=== PATIENT | female | born 1980 | race African-American/Black ===

== ENCOUNTER 2016-03-03 12:33 | Emergency (ER) | payer OTHER ==
[~2016-03-03] VITALS: Ht 162.6 cm; Wt 53.1 kg
[2016-03-03 12:58] VITALS: BP 99/57
[2016-03-03 13:48] LABS: Urine RBC None Seen /hpf (0 - 4)
[2016-03-03 14:08] LABS: Urine Bilirubin Negative (Negative); Urine Blood Negative /uL (Negative); Urine Color Yellow (Yellow); Urine Glucose Normal (Normal); Urine Ketone Negative (Negative); Urine Nitrite Negative (Negative); Urine Squamous Epithelial Cell FEW /hpf (<5); Urine Urobilinogen Normal (Negative); Urine pH 5.5 (5.0-8.0)
== END 2016-03-03 17:29 | disposition left against medical advice (07) ==
LOC: ER 12:34
DX: R23.8 Other skin changes (principal); J02.9 Acute pharyngitis, unspecified; F41.9 Anxiety disorder, unspecified
CPT/HCPCS: 81001; 81025

== ENCOUNTER 2016-03-19 09:44 | Emergency (ER) | payer OTHER ==
[~2016-03-19] VITALS: Ht 162.6 cm; Wt 55.8 kg
[2016-03-19 10:07] VITALS: BP 117/70
== END 2016-03-19 13:00 | disposition home or self-care (01) ==
LOC: ER 09:44
DX: O26.891 Other specified pregnancy related conditions, first trimester (principal); Z32.01 Encounter for pregnancy test, result positive; Z90.49 Acquired absence of other specified parts of digestive tract
CPT/HCPCS: 36415; 84702

== ENCOUNTER 2016-03-27 10:36 | Emergency (ER) | payer OTHER ==
[~2016-03-27] VITALS: Ht 162.6 cm; Wt 54.4 kg
[2016-03-27 11:48] VITALS: BP 112/67
[2016-03-27] MEDS ORDERED: SODIUM CHLORIDE 0.9% 1,000 ML IVB ONE (11:58)
[2016-03-27 12:07] LABS: Albumin 3.9 g/dL (3.4-5.0); BUN/Creatinine Ratio 14.3; Bilirubin, Total 0.3 mg/dL (0.2-1.0); Potassium 3.7 mmol/L (3.5-5.1); Total Protein 8.4 g/dL (6.4-8.2)
[2016-03-27 12:18] LABS: Urine Bilirubin Negative (Negative); Urine Blood Negative /uL (Negative); Urine Color Yellow (Yellow); Urine Glucose Normal (Normal); Urine Ketone Negative (Negative); Urine Mucus FEW (None Seen); Urine Nitrite Negative (Negative); Urine RBC 1 /hpf (0 - 4); Urine Sperm PRESENT /hpf (None Seen); Urine Squamous Epithelial Cell FEW /hpf (<5); Urine Urobilinogen Normal (Negative); Urine pH 5.5 (5.0-8.0)
[2016-03-27 12:32] LABS: Basophils # (auto) 0 uL; Basophils % (auto) 0.4 % (0.0-2.0); DEFINITIVE VIEW TRANSMISSION; Eosinophils # (auto) 0 uL; Eosinophils % (auto) 0.7 % (0.0-7.0); Hematocrit 36.4 % (36.0-46.0); Hemoglobin 11.2 g/dL (12.2-16.2); Lymphocytes # (auto) 1.4 uL; Lymphocytes % (auto) 33.9 % (10.0-50.0); Mean Corpuscular Hemoglobin 23.8 pg (28.0-32.0); Mean Corpuscular Hgb Conc. 30.8 g/dL (32.0-36.0); Mean Corpuscular Volume 77.4 fL (80.0-100.0); Mean Platelet Volume 8.8 fL (7.4-10.4); Monocytes # (auto) 0.4 uL; Monocytes % (auto) 10.5 % (0.0-12.0); Neutrophils # (auto) 2.2 uL; Neutrophils % (auto) 54.5 % (37.0-80.0); Platelet Count (auto) 334 10^3/uL (140-450); White Blood Cell 4.1 10^3/uL (4.4-10.8)
[2016-03-27 12:51] LABS: Anisocytosis Slight; Hypochromia Moderate; Large Platelets FEW; Platelet Estimate Adequate
== END 2016-03-27 15:23 | disposition left against medical advice (07) ==
LOC: ER 10:36
DX: O20.8 Other hemorrhage in early pregnancy (principal); Z3A.01 Less than 8 weeks gestation of pregnancy; Z53.21 Procedure and treatment not carried out due to patient leaving prior to being seen by health care provider
CPT/HCPCS: 36415; 76801; 80053; 81001; 84702; 85025; J7030; 94761; 96360; 96361

== ENCOUNTER 2016-10-02 19:30 | Observation (INO) | payer MEDICAID | END 2016-10-02 21:55 | disposition home or self-care (01) | DRG 566 | LOC: LDRP 19:30 | PROVIDERS: ADMIT Obstetrics & Gynecology; ATTEND Obstetrics & Gynecology | DX: O99.513 Diseases of the respiratory system complicating pregnancy, third trimester (principal); Z3A.33 33 weeks gestation of pregnancy | CPT/HCPCS: 59025; 76818; 81002; G0378 ==

== ENCOUNTER 2016-10-02 22:02 | Emergency (ER) | payer MEDICAID ==
[~2016-10-02] VITALS: Ht 162.6 cm; Wt 72.6 kg
[2016-10-02 22:47] LABS: Basophils # (auto) 0.1 uL; Basophils % (auto) 0.8 % (0.0-2.0); CONDITION Y; DEFINITIVE SEE PRINTOUT; Eosinophils # (auto) 0.1 uL; Eosinophils % (auto) 0.8 % (0.0-7.0); Hematocrit 26.2 % (36.0-46.0); Hemoglobin 8.3 g/dL (12.2-16.2); Lymphocytes # (auto) 1.5 uL; Lymphocytes % (auto) 17.6 % (10.0-50.0); Mean Corpuscular Hemoglobin 21.9 pg (28.0-32.0); Mean Corpuscular Hgb Conc. 31.7 g/dL (32.0-36.0); Mean Platelet Volume 7.6 fL (7.4-10.4); Monocytes # (auto) 0.9 uL; Monocytes % (auto) 10.3 % (0.0-12.0); Neutrophils # (auto) 5.9 uL; Neutrophils % (auto) 70.5 % (37.0-80.0); Platelet Count (auto) 232 10^3/uL (140-450); White Blood Cell 8.4 10^3/uL (4.4-10.8)
[2016-10-02 22:57] LABS: Red Cell Distribution Width 20.4 % (11.6-16.0)
[2016-10-02 23:03] LABS: Albumin 2.7 g/dL (3.4-5.0); BUN/Creatinine Ratio 8.1; Calcium 8.3 mg/dL (8.5-10.1); Potassium 3.8 mmol/L (3.5-5.1)
[2016-10-02 23:06] LABS: Bilirubin, Total 0.5 mg/dL (0.2-1.0); Total Protein 7.2 g/dL (6.4-8.2)
[2016-10-02 23:08] LABS: INR 0.97 (0.9-1.15); Partial Thromboplastin Time 27.3 sec (22.64-33.71); Prothrombin Time 10.6 sec (9.37-12.3)
[2016-10-02 23:51] LABS: Anisocytosis Moderate; Hypersegmented Neutrophils Present; Microcytosis Marked; Platelet Estimate Adequate
[2016-10-02 23:52] LABS: Hypochromia Slight; Ovalocytes FEW
[2016-10-03] MEDS ORDERED: SODIUM CHLORIDE 0.9% 1,000 ML IV ONE ×2 (02:30→02:45)
[2016-10-03 03:23] VITALS: BP 113/56
== END 2016-10-03 03:48 | disposition home or self-care (01) ==
LOC: ER 22:04
DX: O26.893 Other specified pregnancy related conditions, third trimester (principal); E86.0 Dehydration; Z3A.34 34 weeks gestation of pregnancy; K21.9 Gastro-esophageal reflux disease without esophagitis; Z90.49 Acquired absence of other specified parts of digestive tract
CPT/HCPCS: 36415; 80053; 85025; 85610; 85730; 96360; 99284; J7030

== ENCOUNTER 2016-11-02 19:05 | Observation (INO) | payer MEDICAID ==
[2016-11-02] MEDS ORDERED: PREN-96 PO (22:16)
== END 2016-11-02 20:41 | disposition home or self-care (01) | DRG 955 ==
LOC: LDRP 19:05
PROVIDERS: ADMIT Obstetrics & Gynecology; ATTEND Obstetrics & Gynecology
DX: O26.899 Other specified pregnancy related conditions, unspecified trimester (principal); R10.9 Unspecified abdominal pain; E86.0 Dehydration; Z3A.00 Weeks of gestation of pregnancy not specified
CPT/HCPCS: 59025; 81002; G0378

== ENCOUNTER 2016-11-22 18:16 | Emergency (ER) | payer MEDICAID ==
[~2016-11-22 18:16] MED LIST: PREN-96 PO
[2016-11-22 19:16] LABS: Urine Bilirubin Negative (Negative); Urine Blood Negative /uL (Negative); Urine Color Yellow (Yellow); Urine Glucose Normal (Normal); Urine Ketone TRACE (Negative); Urine Mucus FEW (None Seen); Urine Nitrite Negative (Negative); Urine RBC 2 /hpf (0 - 4); Urine Squamous Epithelial Cell FEW /hpf (<5); Urine Urobilinogen Normal (Negative)
[2016-11-22 19:26] LABS: BUN/Creatinine Ratio 9.7; Bilirubin, Total 0.8 mg/dL (0.2-1.0); Potassium 3.5 mmol/L (3.5-5.1)
[2016-11-22 19:46] LABS: Basophils # (auto) 0.1 uL; Basophils % (auto) 1.6 % (0.0-2.0); Eosinophils # (auto) 0.3 uL; Eosinophils % (auto) 3.5 % (0.0-7.0); Hematocrit 34.4 % (36.0-46.0); Hemoglobin 10.2 g/dL (12.2-16.2); Lymphocytes # (auto) 1.4 uL; Lymphocytes % (auto) 17.3 % (10.0-50.0); Mean Corpuscular Hemoglobin 22.1 pg (28.0-32.0); Mean Corpuscular Hgb Conc. 29.8 g/dL (32.0-36.0); Mean Corpuscular Volume 74.2 fL (80.0-100.0); Mean Platelet Volume 8.3 fL (6.9-10.8); Monocytes # (auto) 0.6 uL; Monocytes % (auto) 7.6 % (0.0-12.0); Neutrophils # (auto) 5.8 uL; Nucleated Red Blood Cells % 0.1 %; Platelet Count (auto) 222 10^3/uL (140-450); White Blood Cell 8.3 10^3/uL (4.4-10.8)
[2016-11-22 21:51] LABS: Anisocytosis Moderate; Platelet Estimate Adequate
[2016-11-22 21:52] LABS: Hypochromia Moderate; Microcytosis Moderate
[2016-11-23 05:12] VITALS: BP 170/103
[2016-11-23] MEDS ORDERED: SODIUM CHLORIDE 0.9% 1,000 ML IV ONE (05:45)
== END 2016-11-23 06:06 | disposition home or self-care (01) ==
LOC: ER 18:21
DX: O86.20 Urinary tract infection following delivery, unspecified (principal); O90.89 Other complications of the puerperium, not elsewhere classified; R19.7 Diarrhea, unspecified; K21.9 Gastro-esophageal reflux disease without esophagitis
CPT/HCPCS: 36415; 80053; 81001; 85025; 93005; 96360; 99285; J7030

== ENCOUNTER 2016-12-16 22:36 | Emergency (ER) | payer MEDICAID ==
[~2016-12-16] VITALS: Ht 162.6 cm; Wt 55.8 kg
[2016-12-16 23:27] LABS: Eosinophils # (auto) 0.1 uL; Mean Corpuscular Hemoglobin 23.3 pg (28.0-32.0); Mean Corpuscular Volume 74.6 fL (80.0-100.0); Monocytes # (auto) 0.5 uL; White Blood Cell 3.8 10^3/uL (4.4-10.8)
[2016-12-16 23:29] LABS: Basophils # (auto) 0 uL; Basophils % (auto) 1.3 % (0.0-2.0); Eosinophils % (auto) 1.6 % (0.0-7.0); Hemoglobin 11.6 g/dL (12.2-16.2); Lymphocytes # (auto) 1.7 uL; Lymphocytes % (auto) 45.1 % (10.0-50.0); Mean Corpuscular Hgb Conc. 31.2 g/dL (32.0-36.0); Mean Platelet Volume 8.2 fL (6.9-10.8); Neutrophils # (auto) 1.5 uL; Platelet Count (auto) 178 10^3/uL (140-450)
[2016-12-16 23:44] LABS: Red Cell Distribution Width 23.8 % (11.8-14.3)
[2016-12-17 00:01] LABS: BUN/Creatinine Ratio 9.1; Bilirubin, Total 0.6 mg/dL (0.2-1.0); Potassium 3.8 mmol/L (3.5-5.1); Total Protein 8.4 g/dL (6.4-8.2)
[2016-12-17 00:46] LABS: Anisocytosis Slight; Microcytosis Slight; Ovalocytes FEW; Platelet Estimate Adequate
[2016-12-17 04:06] VITALS: BP 131/89
== END 2016-12-17 04:28 | disposition home or self-care (01) ==
LOC: ER 22:41
DX: R22.1 Localized swelling, mass and lump, neck (principal); K21.9 Gastro-esophageal reflux disease without esophagitis; Z90.49 Acquired absence of other specified parts of digestive tract
CPT/HCPCS: 36415; 80053; 85025